=== PATIENT | male | born 1985 | race Caucasian/White ===

== ENCOUNTER 2020-05-30 11:12 | Emergency (ER) | payer OTHER, BC, SELFPAY ==
--- NOTE | ~2020-05-30 | XR_ITS ---
EXAMINATION: XR finger 1st RT min 2V DATE: 05/30/2020 12:34 INDICATION: Laceration and crush injury at the right thumb TECHNIQUE: Dorsal palmar, lateral and 2 oblique views of the right first digit were obtained COMPARISON: None FINDINGS: Nondisplaced linear fracture across the distal tip of the tuft of the right first distal phalanx. Ali gnment remains essentially anatomic. No other fractures identified. Joint spaces are normal. Curvilin ear opacity projecting over the soft tissues at the ulnar side of the tip of the thumb likely represe nting a laceration which appears to extend across the base of the nailbed. IMPRESSION: 1. Nondisplaced tuft fracture at the right first distal phalanx. There is suggestion of associated na ilbed injury which would render this equivalent to an open/compound fracture at increased risk of inf ection. Reviewed, dictated and finalized at location A. IMPRESSION: 1. Nondisplaced tuft fracture at the right first distal phalanx. There is sugge stion of associated nailbed injury which would render this equivalent to an ope n/compound fracture at increased risk of infection.
[2020-05-30 11:21] VITALS: BP 180/113; PULSE 92; RESP 17; TEMP 37.1; O2SAT 98
[2020-05-30] MEDS: IBUPROFEN 600 MG TABLET PO (12:26)
[2020-05-30] MEDS: TETANUS,DIPHTHERIA,AC PERTUSSIS ADULT (0.5 ML) BOOSTRIX IM (12:26)
--- NOTE | 2020-05-30 12:56 | ED.WOUNDLAC ---
HPI - Wound/Laceration General Chief Complaint: Wound/Laceration <Sujata Mitchell PA-C - Last Filed: 05/30/20 13:56> Stated Complaint: cut to tip of thumb/nailbed <Sujata Mitchell PA-C - Last Filed: 05/30/20 13:56> Time Seen by Provider: 05/30/20 11:36 <Sujata Mitchell PA-C - Last Filed: 05/30/20 13:56> Source: patient <Sujata Mitchell PA-C - Last Filed: 05/30/20 13:56> Mode of arrival: ambulatory <Sujata Mitchell PA-C - Last Filed: 05/30/20 13:56> Limitations: no limitations <Sujata Mitchell PA-C - Last Filed: 05/30/20 13:56> History of Present Illness HPI narrative: This is a 35-year-old male that presents the emergency department for laceration to right thumb sustained just prior to arrival. Reports he got the finger shut in a door. Reports laceration to the nail. He is unsure of his last tetanus vaccine. Denies decreased range of motion or numbness. <Sujata Mitchell PA-C - Last Filed: 05/30/20 13:56> Related Data Allergies/Adverse Reactions: Allergies Allergy/AdvReac Type Severity Reaction Status Date / Time No Known Allergies Allergy Unverified 03/08/18 14:00 <Sujata Mitchell PA-C - Last Filed: 05/30/20 13:56> Review of Systems Review of Systems: Narrative: CONSTITUTIONAL: Denies fever SKIN: Reports laceration MUSCULOSKELETAL: Denies joint pain NEUROLOGIC: Denies numbness <Sujata Mitchell PA-C - Last Filed: 05/30/20 13:56> All systems reviewed & are unremarkable except as noted in HPI and below <Sujata Mitchell PA-C - Last Filed: 05/30/20 13:56> FOR[facility]LY [facility] Past Medical History Medical History: Medical History (Updated 05/30/20 @ 13:52 by Sujata Mitchell PA-C) No active medical problems <Sujata Mitchell PA-C - Last Filed: 05/30/20 13:56> Family History Family History: Family History (Updated 03/26/18 @ 09:33 by DOCTOR UNKNOWN) Father Diabetes mellitus <Sujata Mitchell PA-C - Last Filed: 05/30/20 13:56> Social History Social History: Social History Smoking status: Never smoker Alcohol intake: current Gender identity (if verbalized by the patient): Male <Sujata Mitchell PA-C - Last Filed: 05/30/20 13:56> Exam Narrative: Exam Narrative: GENERAL: Well-appearing, well-nourished, and in no acute distress. HEAD: Normocephalic, atraumatic. EYES: EOMI. EXTREMITIES: Normal range of motion. No edema. Right thumb with 2cm linear laceration into the nail at the base. Normal sensation SKIN: Warm, dry, no rash. NEURO: No focal deficits. Alert and oriented x3. PSYCH: Normal mood and affect <Sujata Mitchell PA-C - Last Filed: 05/30/20 13:56> Course Vital Signs Vital signs: Vital Signs Temperature 98.7 F 05/30/20 11:21 Pulse Rate 92 05/30/20 11:21 Respiratory Rate 17 05/30/20 11:21 Blood Pressure 180/113 H 05/30/20 11:21 Pulse Oximetry 98 05/30/20 11:21 Temperature 98.7 F 05/30/20 11:21 Pulse Rate 75 05/30/20 14:06 Respiratory Rate 15 05/30/20 14:06 Blood Pressure 145/92 H 05/30/20 14:06 Pulse Oximetry 100 05/30/20 14:06 <Sujata Mitchell PA-C - Last Filed: 05/30/20 13:56> Vital Signs Temperature 98.7 F 05/30/20 11:21 Pulse Rate 92 05/30/20 11:21 Respiratory Rate 17 05/30/20 11:21 Blood Pressure 180/113 H 05/30/20 11:21 Pulse Oximetry 98 05/30/20 11:21 Temperature 98.7 F 05/30/20 11:21 Pulse Rate 75 05/30/20 14:06 Respiratory Rate 15 05/30/20 14:06 Blood Pressure 145/92 H 05/30/20 14:06 Pulse Oximetry 100 05/30/20 14:06 <Dominique Smith MD - Last Filed: 05/30/20 16:41> Procedures Laceration Laceration 1: Date: 05/30/20 <Sujata Mitchell PA-C - Last Filed: 05/30/20 13:56> Time: 13:50 <Sujata Mitchell PA-C - Last Filed: 05/30/20 13:56> Site: hand <Sujata Mitchell PA-C - Last Filed: 05/30/20 13:56> Side (If applicable): right <TRUPTI Au Last Filed
[2020-05-30] MEDS: LIDOCAINE HCL 1% LOCAL INJ 20 ML VIAL (13:03)
[2020-05-30] MEDS: ceFAZolin SODIUM 1 GM VIAL IM (13:03)
[2020-05-30 13:48] VITALS: BP 154/99; PULSE 89; RESP 18; O2SAT 100
[2020-05-30 14:06] VITALS: BP 145/92; PULSE 75; RESP 15; O2SAT 100
== END 2020-05-30 14:07 | disposition home or self-care (01) ==
PROVIDERS: Emergency Provider General Practice
DX: S62.524B Nondisplaced fracture of distal phalanx of right thumb, initial encounter for open fracture (principal); W23.0XXA Caught, crushed, jammed, or pinched between moving objects, initial encounter; Z23 Encounter for immunization
CPT/HCPCS: 12001; 29130; 73140; 90471; 90715; 96372; 99283; A9270; J0690